=== PATIENT | female | born 1995 | race Caucasian/White ===

== ENCOUNTER 2016-06-23 11:11 | Emergency (ER) | payer BC ==
[2016-06-23 12:23] VITALS: BP 120/64
[2016-06-23] MEDS ORDERED: Ketorolac INJ* 60 MG/2 ML VIAL IM ONE (12:39)
--- NOTE | 2016-06-23 12:42 | UC ---
Headache HPI - HPI Summary HPI Summary: pt c/o headache one episode of light sensitivity, pt declines injury or recent illness. Has positive history of migraine headaches. Has no known exposure to meningitis. Pt has taken 2 doses of ibuprofen. Once on the day of first onset of miranda and again on 06/22/16 - History Of Current Complaint Chief Complaint: UCHeadache Stated Complaint: HEADACHE/LIGHT HEADED Time Seen by Provider: 06/23/16 12:22 Hx Obtained From: Patient Hx Last Menstrual Period: 06/13/16 ?: No Onset/Duration: Gradual Onset, Lasting Days Onset Of Symptoms: Sudden, Still Present Character: Dull, Pressure Location of Headache: Occipital Aggravating Factor: Nothing Allevating Factors: Nothing Associated Signs And Symptoms: Positive: Dizziness - Allergies/Home Medications Allergies/Adverse Reactions: Allergies Allergy/AdvReac Type Severity Reaction Status Date / Time No Known Allergies Allergy Verified 06/23/16 12:16 PMH/Surg Hx/FS Hx/Imm Hx Previously Healthy: Yes Respiratory History Of: Reports: Asthma - VERY MILD - Surgical History Surgical History: None - Family History Known Family History: Positive: Hypertension, Respiratory Disease - Social History Occupation: Student Alcohol Use: Occasionally Substance Use Type: None Smoking Status (MU): Never Smoked Tobacco - Immunization History Most Recent Influenza Vaccination: NONE [id number] SEAS[place] Review of Systems Constitutional: Negative Skin: Negative Eyes: Negative ENT: Negative Respiratory: Negative Cardiovascular: Negative Gastrointestinal: Negative Genitourinary: Negative Motor: Negative Neurovascular: Negative Musculoskeletal: Negative Neurological: Headache Psychological: Negative All Other Systems Reviewed And Are Negative: Yes Physical Exam Triage Information Reviewed: Yes Appearance: Well-Appearing Vital Signs: Initial Vital Signs Temp 98.3 F 06/23/16 12:17 Pulse 84 06/23/16 12:17 Resp 16 06/23/16 12:17 BP 120/64 06/23/16 12:17 Pulse Ox 100 06/23/16 12:17 Vital Signs Reviewed: Yes Eye Exam: Normal ENT Exam: Normal Neck exam: Normal Respiratory Exam: Normal Cardiovascular Exam: Normal Musculoskeletal Exam: Normal Neurological Exam: Normal Psychological Exam: Normal Skin Exam: Normal Headache Course/Dx - Differential Dx/Diagnosis Differential Diagnosis/HQI/PQRI: Meningitis, Migraine, Tension Headache Provider Diagnoses: Tension MIRANDA. migraine Discharge - Discharge Plan Condition: Stable Disposition: HOME Patient Education Materials: Tension Headache (ED)
[2016-06-23] MEDS ORDERED: Acetaminophen TAB* 325 MG PO ONE (12:56)
== END 2016-06-23 13:28 | disposition home or self-care (01) ==
LOC: UCCORT 11:11
DX: G44.209 Tension-type headache, unspecified, not intractable (principal); G43.909 Migraine, unspecified, not intractable, without status migrainosus
CPT/HCPCS: 99212; A9270-GY; G0463